=== PATIENT | female | born 1990 | race Caucasian/White ===

== ENCOUNTER → 2017-05-24 | Outpatient (CLI) | payer OTHER ==
[~2017-05-24] MED LIST: CYCL10 PO; DOCU100 PO; EXPECTA PRENAT1 EACH; FAMO20; HYDACE5 PO; IBUP800 PO; Norco 5-325 Ta1 EACH PO; PROBIOTIC1 EAC1; Pepcid40 MG PO; RXCYCL10 PO; SUCR1 PO
[2017-05-24 16:22] LABS: Specimen Source CERVIX
[2017-05-25 11:15] LABS: Candida species (DNA Probe) Negative (NEGATIVE); G. vaginalis (DNA Probe) Negative (NEGATIVE); T. vaginalis (DNA Probe) Negative (NEGATIVE)
[2017-05-25 13:33] LABS: Source Cervix
== END ==
LOC: LAB SHORT 15:09
PROVIDERS: Obstetrics & Gynecology
DX: Z11.3 Encounter for screening for infections with a predominantly sexual mode of transmission (principal)
CPT/HCPCS: 87081; 87480; 87491; 87510; 87591; 87653; 87660

== ENCOUNTER 2017-06-14 16:30 | Inpatient (IN) | payer OTHER ==
[~2017-06-14] VITALS: Ht 157.5 cm; Wt 66.2 kg
[~2017-06-14 16:30] MED LIST changes: -EXPECTA PRENAT1 EACH; -FAMO20; -PROBIOTIC1 EAC1
[2017-06-14] MEDS ORDERED: EXPECTA PRENAT1 EACH (17:42)
[2017-06-14] MEDS ORDERED: PROBIOTIC1 EAC1 (17:42)
[2017-06-14] MEDS ORDERED: FAMO20 (17:43)
[2017-06-14 17:45] LABS: BASOPHILS ABSOLUTE AUTO 0.04 K/mm3 (0.00-0.23); BASOPHILS PERCENT AUTO 0 % (0-2); EOSINOPHILS ABSOLUTE AUTO 0.06 K/mm3 (0.00-0.68); EOSINOPHILS PERCENT AUTO 1 % (0-6); Hematocrit 34.7 % (33.0-51.0); Hemoglobin 11.7 g/dL (11.5-16.0); IMMATURE GRAN ABSOLUTE AUTO 0.08 K/mm3 (0.00-0.10); IMMATURE GRAN PERCENT AUTO 1 % (0-1); LYMPHOCYTES ABSOLUTE AUTO 1.75 K/mm3 (0.84-5.20); LYMPHOCYTES PERCENT AUTO 18 % (21-46); MONOCYTES ABSOLUTE AUTO 1.04 K/mm3 (0.16-1.47); MONOCYTES PERCENT AUTO 11 % (4-13); Mean Corpuscular HGB 30.5 pg (26.0-34.0); Mean Corpuscular HGB Conc 33.7 g/dL (31.5-36.5); Mean Corpuscular Volume 90 fL (80-100); Mean Platelet Volume 9.7 fL (9.1-12.4); NEUTROPHILS ABSOLUTE AUTO 6.64 K/mm3 (1.96-9.15); NEUTROPHILS PERCENT AUTO 69 % (41-73); Platelet Count 193 K/mm3 (150-400); RDW Coefficient Variation 12.6 % (11.7-14.2); RDW Standard Deviation 40.7 fL (35.1-46.3); Red Blood Cell Count 3.84 M/mm3 (3.80-5.20); White Blood Cell Count 9.61 K/mm3 (4.00-11.30)
[2017-06-15 06:34] LABS: Hematocrit 31.6 % (33.0-51.0); Hemoglobin 10.7 g/dL (11.5-16.0); Mean Corpuscular HGB 30.4 pg (26.0-34.0); Mean Corpuscular HGB Conc 33.9 g/dL (31.5-36.5); Mean Corpuscular Volume 90 fL (80-100); Mean Platelet Volume 9.8 fL (9.1-12.4); Platelet Count 161 K/mm3 (150-400); RDW Coefficient Variation 12.6 % (11.7-14.2); RDW Standard Deviation 40.9 fL (35.1-46.3); Red Blood Cell Count 3.52 M/mm3 (3.80-5.20); White Blood Cell Count 10.36 K/mm3 (4.00-11.30)
== END 2017-06-15 22:20 | disposition home or self-care (01) | DRG 775 ==
LOC: OBS 16:30 → BC 16:37 → OBS 17:15 → BC 17:16
PROVIDERS: Obstetrics & Gynecology
PROC: 10E0XZZ Delivery of Products of Conception, External Approach (ICD-10-PCS; principal; 2017-06-14)
PROC: 10907ZC Drainage of Amniotic Fluid, Therapeutic from Products of Conception, Via Natural or Artificial Opening (ICD-10-PCS; 2017-06-14)
DX: O77.0 Labor and delivery complicated by meconium in amniotic fluid (principal); Z37.0 Single live birth; Z3A.39 39 weeks gestation of pregnancy
CPT/HCPCS: 36415; 81003; 85025; 85027; J1885; J2210; J2590; J3010; J7120

== ENCOUNTER → 2018-01-20 | Outpatient (CLI) | payer OTHER ==
[~2018-01-20] MED LIST changes: +EXPECTA PRENAT1 EACH; +FAMO20; +PROBIOTIC1 EAC1
[2018-01-20 09:54] LABS: Adenovirus F 40/41 Not Detected (NOT DETECT); Astrovirus Not Detected (NOT DETECT); Campylobacter Sp Not Detected (NOT DETECT); Cryptosporidium Not Detected (NOT DETECT); Cyclospora Cayetanensis Not Detected (NOT DETECT); E. Coli O157 Not Detected (NOT DETECT); Entamoeba Histolytica Not Detected (NOT DETECT); Enteroaggregative E. coli-EAEC Not Detected (NOT DETECT); Enteropathogenic E. coli-EPEC Not Detected (NOT DETECT); Enterotoxigenic E. coli-ETEC Not Detected (NOT DETECT); Giardia Lamblia Not Detected (NOT DETECT); Norovirus GI/GII Not Detected (NOT DETECT); Plesiomonas Shigelloides Not Detected (NOT DETECT); Rotavirus A Not Detected (NOT DETECT); Salmonella Sp Not Detected (NOT DETECT); Sapovirus Not Detected (NOT DETECT); Shiga Toxin-prod E. coli-STEC Not Detected (NOT DETECT); Shigella/Enteroin E. coli-EIEC Not Detected (NOT DETECT); Vibrio Cholerae Not Detected (NOT DETECT); Vibrio Sp Not Detected (NOT DETECT); Yersinia Enterocolitica Not Detected (NOT DETECT)
[2018-01-20 14:00] LABS: Stool Occult Bld Immuno 1 Negative (NEGATIVE)
== END ==
LOC: LAB SHORT 09:31 → LAB 09:31 → LAB FUT 01-19 17:25
PROVIDERS: Internal Medicine Gastroenterology
DX: D64.9 Anemia, unspecified (principal); R10.31 Right lower quadrant pain
CPT/HCPCS: 87507; G0328

== ENCOUNTER → 2018-02-08 | Outpatient (CLI) | payer OTHER ==
[2018-02-14 17:07] LABS: CHLAMYDIA BY NAA Negative (Negative); GONOCOCCUS BY NAA Negative (Negative); TRICH VAG BY NAA Negative (Negative)
== END | disposition home or self-care (01) ==
LOC: LAB 12:02 → LAB SHORT 12:02
PROVIDERS: Obstetrics & Gynecology
DX: Z01.419 Encounter for gynecological examination (general) (routine) without abnormal findings (principal); Z11.3 Encounter for screening for infections with a predominantly sexual mode of transmission
CPT/HCPCS: 87491; 87591; 87661; G0123

== ENCOUNTER → 2018-11-06 | Outpatient (CLI) | payer OTHER ==
[2018-11-09 05:11] LABS: CHLAMYDIA BY NAA Negative (Negative); GONOCOCCUS BY NAA Negative (Negative); TRICH VAG BY NAA Negative (Negative)
== END | disposition home or self-care (01) ==
LOC: LAB EV 16:49 → LAB SHORT 16:49
PROVIDERS: Physician Assistant Medical
DX: N89.8 Other specified noninflammatory disorders of vagina (principal)
CPT/HCPCS: 87070; 87077; 87086; 87186; 87205; 87491; 87591; 87661

== ENCOUNTER → 2019-02-26 | Outpatient (CLI) | payer OTHER ==
[2019-02-27 09:54] LABS: Candida species (DNA Probe) Negative (NEGATIVE); G. vaginalis (DNA Probe) Negative (NEGATIVE); T. vaginalis (DNA Probe) Negative (NEGATIVE)
[2019-02-28 16:06] LABS: CHLAMYDIA TRACHOMATIS, NAA Negative (Negative); NEISSERIA GONORRHOEAE, NAA Negative (Negative)
== END ==
LOC: LAB SHORT 12:12 → LAB 12:12
PROVIDERS: Advanced Practice Midwife
DX: N76.0 Acute vaginitis (principal); R10.2 Pelvic and perineal pain
CPT/HCPCS: 87480; 87491; 87510; 87591; 87660

== ENCOUNTER 2019-03-07 17:24 | Emergency (ER) | payer OTHER ==
[~2019-03-07] VITALS: Ht 157.5 cm; Wt 51.3 kg
[2019-03-07 18:02] LABS: BASOPHILS ABSOLUTE AUTO 0.04 K/mm3 (0.00-0.23); BASOPHILS PERCENT AUTO 1 % (0-2); EOSINOPHILS PERCENT AUTO 2 % (0-6); Hematocrit 40.4 % (33.0-51.0); Hemoglobin 13.4 g/dL (11.5-16.0); IMMATURE GRAN ABSOLUTE AUTO 0.02 K/mm3 (0.00-0.10); IMMATURE GRAN PERCENT AUTO 0 % (0-1); LYMPHOCYTES ABSOLUTE AUTO 0.73 K/mm3 (0.84-5.20); LYMPHOCYTES PERCENT AUTO 11 % (21-46); MONOCYTES ABSOLUTE AUTO 0.42 K/mm3 (0.16-1.47); MONOCYTES PERCENT AUTO 6 % (4-13); Mean Corpuscular HGB 31.5 pg (26.0-34.0); Mean Corpuscular HGB Conc 33.2 g/dL (31.5-36.5); Mean Corpuscular Volume 95 fL (80-100); Mean Platelet Volume 9.3 fL (9.1-12.4); NEUTROPHILS ABSOLUTE AUTO 5.55 K/mm3 (1.96-9.15); NEUTROPHILS PERCENT AUTO 81 % (41-73); Platelet Count 221 K/mm3 (150-400); RDW Coefficient Variation 12.1 % (11.7-14.2); RDW Standard Deviation 41.8 fL (35.1-46.3); Red Blood Cell Count 4.25 M/mm3 (3.80-5.20); White Blood Cell Count 6.86 K/mm3 (4.00-11.30)
[2019-03-07 18:42] LABS: Source, Urine Clean Catch
[2019-03-07 18:54] LABS: Bilirubin, Urine Neg (Neg); Blood, Urine 2+ (Neg); Glucose Qualitative, Urine Neg (Neg); Ketones, Urine Neg (Neg); Leukocyte Esterase, Urine Neg (Neg); Nitrite, Urine Neg (Neg); Protein, Urine 1+ (Neg); Urobilinogen, Urine NORM (Normal)
[2019-03-07 18:58] LABS: Appearance, Urine Clear (Clear); Color, Urine Yellow (P-Yellow)
[2019-03-07 19:02] LABS: Bacteria Few /hpf; Mucus Light (0-Heavy); Squamous Epithelial Cells Mod /hpf (Few); White Blood Cells, Urine 0-2 /hpf (0-5)
[2019-03-07 19:03] LABS: Alanine Aminotransfer (ALT/SGP 24 U/L (12-78); Albumin, Blood 3.8 g/dL (3.4-5.0); Albumin/Globulin Ratio 1.1 (0.8-1.8); Alk Phos 41 U/L (50-136); Anion Gap 4 mmol/L (6-16); Aspartate Aminotrans (AST/SGOT 18 U/L (12-37); Bilirubin, Total 0.5 mg/dL (0.1-1.0); Blood Urea Nitrogen 11 mg/dL (8-24); Bun/Creatinine Ratio 19.7 (12.0-20.0); CO2, Blood 27 mmol/L (21-32); Chloride, Blood 109 mmol/L (98-108); Creatinine, Blood 0.56 mg/dL (0.40-1.00); Globulin, Blood 3.5 g/dL (2.2-4.0); Glomerular Filtration Rate >60 (60-); Glucose, Blood 112 mg/dL (70-99); Potassium, Blood 3.7 mmol/L (3.5-5.5); Sodium, Blood 140 mmol/L (136-145); Total Protein, Blood 7.3 g/dL (6.4-8.2)
[2019-03-09 18:06] LABS: CHLAMYDIA TRACHOMATIS, NAA Negative (Negative); NEISSERIA GONORRHOEAE, NAA Negative (Negative)
== END 2019-03-07 21:26 | disposition home or self-care (01) ==
LOC: ER 17:24
PROVIDERS: Physician Assistant
DX: T19.2XXA Foreign body in vulva and vagina, initial encounter (principal); T74.21XA Adult sexual abuse, confirmed, initial encounter; L25.9 Unspecified contact dermatitis, unspecified cause; Z88.8 Allergy status to other drugs, medicaments and biological substances; Z79.899 Other long term (current) drug therapy; Z87.891 Personal history of nicotine dependence
CPT/HCPCS: 80053; 81001; 85025; 99283; J1100; Q0163

== ENCOUNTER 2020-03-06 11:43 | Day surgery (SDC) | payer OTHER ==
[~2020-03-06] VITALS: Ht 157.5 cm; Wt 56.1 kg
--- NOTE | 2020-03-06 12:21 | NUR ---
03/06/20 1221 Yamilet Scott V PT STATED SHE DRANK CREAM WITH HER COFFEE AT [address] CARPENTER AND DR. MOULTON ARE AWARE. PER DR. CARPENTER, PROCEDURE IS TO BE DELAYED UNTIL 1600. PT IS AWARE OF SITUATION.
[2020-03-06] MEDS ORDERED: AMIT50 PO (15:13)
--- NOTE | 2020-03-06 16:06 | NUR ---
03/06/20 1606 Carina Daniel ABDOMINAL AREA PREPPED BY [email or web address] CLIFFORD AREA PREPPED BY [email or web address]
--- NOTE | 2020-03-06 16:35 | NUR ---
03/06/20 1635 Theresa Watts PATIENT AWAKE BUT VERBALIZES THAT SHE IS SLEEPY. SHE ANSWERS QUESTIONS APPROPRIATELY. WHEN ASKED ABOUT PAIN OR NAUSEA SHE DENIES BOTH. OPENS EYES AND SPEAKS WITH DR MOULTON WHEN SHE COMES INTO PACU. PATIENT IS STABLE AT THIS TIME
--- NOTE | 2020-03-06 16:48 | NUR ---
03/06/20 4169 Theresa Watts PATIENT ABLE TO TRANSFER FROM BED TO CHAIR WITHOUT DIFFICULTY. SHE DOES ADMIT TO BEING A LITTLE DIZZY AND MILD NAUSEA. SHE IS SIPPING ON FLUIDS AT THIS TIME AND APPEARS COMFORTABLE. SHE DENIES PAIN AT THIS TIME..
== END 2020-03-06 17:12 | disposition home or self-care (01) ==
LOC: ORSCSDS 11:43
PROVIDERS: Obstetrics & Gynecology
PROC: 0U5F4ZZ Destruction of Cul-de-sac, Percutaneous Endoscopic Approach (ICD-10-PCS; principal; 2020-03-06 13:00)
DX: N94.6 Dysmenorrhea, unspecified (principal); R10.2 Pelvic and perineal pain; N80.3 Endometriosis of pelvic peritoneum; Z87.891 Personal history of nicotine dependence; K21.9 Gastro-esophageal reflux disease without esophagitis; Z79.899 Other long term (current) drug therapy
CPT/HCPCS: J0171; J1100; J1885; J2250; J2405; J2704; J2710; J2765; J3010; J7120

== ENCOUNTER → 2020-04-02 | Outpatient (CLI) | payer OTHER ==
[~2020-04-02] MED LIST changes: +AMIT50 PO
[2020-04-04 12:32] LABS: CORONAVIRUS (COVID19) CSH-NRL Negative (Negative)
== END ==
LOC: LAB SHORT 19:39 → LAB 19:39
PROVIDERS: Physician Assistant
DX: Z20.828 Contact with and (suspected) exposure to other viral communicable diseases (principal)
CPT/HCPCS: U0003

== ENCOUNTER → 2021-11-09 | Outpatient (CLI) | payer OTHER | END | disposition home or self-care (01) | LOC: LAB SHORT 18:43 → LAB 18:43 | DX: N39.0 Urinary tract infection, site not specified (principal) | CPT/HCPCS: 87086 ==

== ENCOUNTER → 2024-01-31 | Outpatient (CLI) | payer OTHER ==
[2024-01-31 14:37] LABS: Bacterial Vaginosis PCR Negative (NEGATIVE); Candida Group, PCR NOT DETECTED (NOT DETECT); Candida glabrata-krusei, PCR NOT DETECTED (NOT DETECT)
== END | disposition home or self-care (01) ==
LOC: LAB SHORT 11:22 → LAB 11:22
PROVIDERS: Advanced Practice Midwife
DX: N76.0 Acute vaginitis (principal); R30.0 Dysuria
CPT/HCPCS: 87086; 87481; 87661; 87801

== ENCOUNTER 2024-08-14 06:28 | Day surgery (SDC) | payer OTHER ==
[2024-08-14] VITALS (7 sets, daily range): BP systolic 92–133; BP diastolic 54–91
[~2024-08-14] VITALS: Ht 157.5 cm; Wt 50.0 kg
[2024-08-14] MEDS ORDERED: NS 100 ML IV ONE (06:41)
[2024-08-14] MEDS ORDERED: NS 250 ML IV ONE (06:41)
[2024-08-14] MEDS ORDERED: NS 1,000 ML IV ONE ×3 (06:42→09:48)
[2024-08-14] MEDS ORDERED: Heparin Sodium 1000 Units/ML 10ML MDV ONE ×2 (06:42→08:04)
[2024-08-14] MEDS ORDERED: Midazolam HCl 1MG / ML 2ML Vial ONE ×3 (08:31→09:58)
[2024-08-14] MEDS ORDERED: FentaNYL Citrate 50 MCG/ML 2 ML Injection ONE ×4 (08:31→09:58)
[2024-08-14] MEDS ORDERED: Nitroglycerin 2 MG/20 ML BTL ONE (09:09)
[2024-08-14] MEDS ORDERED: Phenylephrine HCl 100 MCG/ML-NS 10MLSYR (1MG/10ML) ONE (09:48)
--- NOTE | 2024-08-14 10:35 | NUR ---
PT RETURNED TO RECOVERY ROOM POST PROCEDURE. PT DROWSY, BUT ROUSES TO NAME, AND CONVERSES APPROPRIATELY; DENIES PAIN POST PROCEDURE. MONITOR SR 80'S, B/P 102/64. SPO2 100 % RA. R NECK SITE NO SWELLING/HEMATOMA, TEGADERM DRSG INTACT. PT TAKING SIPS OF H20 WITHOUT ISSUE.
[2024-08-14] MEDS ORDERED: IBUP400 PO (11:37)
[2024-08-14] MEDS ORDERED: METPRE4DP PO (11:37)
--- NOTE | 2024-08-14 12:03 | NUR ---
PT DRESSED SELF WITHOUT ISSUE, SITE UNCHANGED; IV REMOVED-CANNULA INTACT.
--- NOTE | 2024-08-14 12:08 | NUR ---
PT RECEIVED DISCHARGE INSTRUCTIONS, MED LIST AND AFTER CARE INSTRUCTIONS; VEBALIZED GOOD UNDERSTANDING. PT LEFT FACILITY VIA W/C, CONDITION STABLE.
== END 2024-08-14 12:08 | disposition home or self-care (01) ==
LOC: MHTC 06:28
DX: I86.2 Pelvic varices (principal); F17.290 Nicotine dependence, other tobacco product, uncomplicated; Z88.0 Allergy status to penicillin; Z79.899 Other long term (current) drug therapy
CPT/HCPCS: 37241; 37252; 75831; 76937; 81025; 99152; 99153; C1753; C1769; C1887; C1889; C1894; J1644; J2250; J2371; J3010; J7030; J7050; Q9967